=== PATIENT | male | born 1995 ===

== ENCOUNTER 2017-02-28 21:16 | Emergency (ER) | payer SELFPAY ==
--- NOTE | 2017-02-28 21:57 | ED PDOC ---
Arrival/HPI - General Chief Complaint: Male Genitourinary Time Seen by Provider: 02/28/17 21:55 Historian: Patient - History of Present Illness Narrative History of Present Illness (Text): 02/28/17 22:48 21 yo M presents to the ER for concern for herpes exposure. Patient states that his roommate's girlfriend was recently diagnosed with herpes infection and he is concerned that he may have it since she was living in the house at some point. He reports that he never had any sexual encounters with his roommate or his roommate's girlfriend. Otherwise patient denies any fever, chills, dysuria, urethral discharge, rash or genital lesions. Has no additional complaints. Past Medical History - Provider Review Nursing Documentation Reviewed: Yes - Psychiatric Hx Substance Use: No Family/Social History - Physician Review Nursing Documentation Reviewed: Yes Family/Social History: Unknown Family HX Smoking Status: n Hx Alcohol Use: No Hx Substance Use: No Review of Systems - Review of Systems Constitutional: absent: Fatigue, Weight Change, Fevers Cardiovascular: absent: Chest Pain, Palpitations, Edema Gastrointestinal: absent: Abdominal Pain, Constipation, Vomiting Genitourinary Male: absent: Dysuria, Frequency, Hematuria Musculoskeletal: absent: Arthralgias, Back Pain, Neck Pain Skin: absent: Rash, Pruritis, Skin Lesions Physical Exam Vital Signs Reviewed: Yes Temperature: Afebrile Blood Pressure: Normal Pulse: Regular Respiratory Rate: Normal Appearance: Positive for: Well-Appearing, Non-Toxic, Comfortable Pain Distress: None Mental Status: Positive for: Alert and Oriented X 3 - Systems Exam Head: Present: Atraumatic, Normocephalic Mouth: Present: Moist Mucous Membranes Neck: Present: Normal Range of Motion Respiratory/Chest: Present: Clear to Auscultation, Good Air Exchange. No: Wheezes, Rhonchi Cardiovascular: Present: Regular Rate and Rhythm, Normal S1, S2. No: Murmurs Abdomen: No: Tenderness, Distention, Guarding Back: Present: Normal Inspection. No: CVA Tenderness, Midline Tenderness Upper Extremity: Present: Normal Inspection, Normal ROM Lower Extremity: Present: Normal Inspection, Normal ROM Neurological: Present: GCS=15, CN II-XII Intact Skin: Present: Warm, Dry, Normal Color. No: Rashes Medical Decision Making ED Course and Treatment: 12/11/17 22:50 21 yo M presents to the ER for concern for herpes exposure, however did not have any recent sexual contact with anyone who was infected and has no symptoms. Patient advised that he should follow-up with the clinic for further testing and evaluation, advised that no further testing could be done today as he is asymptomatic and can not become infected if he never had sexual intercourse with either his roommate or his roommate's girlfriend. - PA / [employer] / Resident Statement MD/ has reviewed & agrees with the documentation as recorded. Disposition/Present on Arrival - Present on Arrival Any Indicators Present on Arrival: No History of DVT/PE: No History of Uncontrolled Diabetes: No Urinary Catheter: No History of Decub. Ulcer: No History Surgical Site Infection Following: None - Disposition Have Diagnosis and Disposition been Completed?: Yes Diagnosis: Concern about sexually transmitted disease in male without diagnosis Disposition: HOME/ ROUTINE Disposition Time: 21:57 Patient Plan: Discharge Patient Problems: Current Active Problems Problem Status Onset Concern about sexually transmitted disease in male without diagnosis Acute Condition: STABLE Discharge Instructions (ExitCare): Sexually Transmitted Diseases (ED) Print Language: ZAMBIAN Referrals: [facility] [place] [Outside] - Follow up with primary Forms: [employer] (Korean), WORK NOTE
[2017-02-28 22:47] VITALS: BP 118/62; PULSE 62; RESP 18; TEMP 98.2; O2SAT 99
== END 2017-02-28 22:05 | disposition home or self-care (01) ==
LOC: ED 21:16
DX: Z71.1 Person with feared health complaint in whom no diagnosis is made (principal)